=== PATIENT | male | born 1995 | race African-American/Black ===

== ENCOUNTER 2016-10-12 16:36 | Emergency (ER) | payer OTHER ==
[2016-10-12 16:52] VITALS: BP 125/64
--- NOTE | 2016-10-12 17:51 | RAD ---
Indication: LEFT fifth finger distal interphalangeal joint dislocation on October 03, 2016 with reduction the same day. Pain at the proximal and mid phalanges. Comparison: October 03, 2016 radiographs. Technique: 3 views LEFT fifth finger REPORT AND IMPRESSION: Normal articular alignment and preserved joint spaces. Negative for fracture. Minimal soft tissue swelling along the dorsal aspect.
--- NOTE | 2016-10-12 18:39 | UC ---
Hand/Wrist HPI - HPI Summary HPI Summary: PT FELL ON OUTSTRETCHED HAND ON 09/2817, DISLOCATING LITTLE FINGER ON LEFT. NO FX. SINCE INJURY, PT HAS KEPT FINGER SPLINTED, ICING IT ON THE HOUR. PT ROM IS RESTRICTED IN FLEXION AT DIP. PT IS NOT ABLE TO MAKE A FIST. PT STIL HAS PAIN WITH ROM AND TENDERNESS. PT WORKS AT [employer] AND NEEDS TO BE FULLY FUNCTIONING TO RETURN TO WORK. - History Of Current Complaint Chief Complaint: UCUpperExtremity Stated Complaint: RE CHECK FINGER INJURY-WC Time Seen by Provider: 10/12/16 17:10 Hx Obtained From: Patient Onset/Duration: Sudden Onset, Lasting Days - 9, Still Present Severity Initially: Moderate Severity Currently: Mild Character Of Pain: Dull, Stiffness Aggravating Factor(s): Flexion, Other - GRIPPING Alleviating: Rest Associated Signs And Symptoms: Positive: Swelling - MILD AT DIP[. Negative: Redness, Bruising, Fever, Weakness, Numbness/Tingling - Allergies/Home Medications Allergies/Adverse Reactions: Allergies Allergy/AdvReac Type Severity Reaction Status Date / Time No Known Allergies Allergy Verified 10/12/16 16:51 PMH/Surg Hx/FS Hx/Imm Hx Previously Healthy: Yes - Surgical History Surgical History: None - Family History Known Family History: Positive: Hypertension - father Negative: Cardiac Disease, Diabetes - Social History Alcohol Use: None Substance Use Type: Marijuana Substance Use Comment - Amount & Last Used: last used last night Smoking Status (MU): Never Smoked Tobacco Review of Systems Constitutional: Negative Skin: Negative Eyes: Negative ENT: Negative Respiratory: Negative Cardiovascular: Negative Gastrointestinal: Negative Genitourinary: Negative Motor: Negative Neurovascular: Negative Musculoskeletal: Arthralgia, Edema Neurological: Negative Psychological: Negative All Other Systems Reviewed And Are Negative: Yes Physical Exam Triage Information Reviewed: Yes Appearance: Well-Appearing, No Pain Distress, Well-Nourished Vital Signs: Initial Vital Signs Temp 97.6 F 10/12/16 16:48 Pulse 70 10/12/16 16:48 Resp 16 10/12/16 16:48 BP 125/64 10/12/16 16:48 Pulse Ox 100 10/12/16 16:48 Vital Signs Reviewed: Yes Eyes: Positive: Conjunctiva Clear. Negative: Discharge ENT: Positive: Hearing grossly normal. Negative: Muffled/hoarse voice Neck exam: Normal Neck: Positive: Supple Respiratory: Positive: Lungs clear, Normal breath sounds, No respiratory distress, No accessory muscle use Cardiovascular: Positive: RRR, No Murmur Musculoskeletal: Positive: ROM Limited @ - IN FLEXION, Edema @ - AT DIP Neurological: Positive: Alert, Muscle Tone Normal Psychological: Positive: Age Appropriate Behavior Skin Exam: Normal Hand/Wrist Course/Dx - Course Course Of Treatment: RE-IMAGED FINGER TO EVAL FOR OCCULT FX. NONE FOUND - Differential Dx/Diagnosis Differential Diagnosis/HQI/PQRI: Dislocation, Fracture, Sprain Provider Diagnoses: FINGER DISLOCATION Discharge - Discharge Plan Condition: Stable Disposition: HOME Patient Education Materials: Finger Dislocation (ED) Forms: *Work Release Referrals: No Primary Care Phys,NOPCP [Primary Care Provider] - Additional Instructions: PHYSICAL THERAPY REFERRAL: YOU NEED HAND THERAPY You have been prescribed physical therapy. Treatments may include stretching, exercise, application of heat or cold, and other modalities. After an injury, PT can reduce swelling and pain. In recovery, PT is used to restore mobility and strength. Your specific treatment goals are: __X___ Reduction of Swelling (EGS, US, ice as needed) __X___ Pain Reduction (EGS, US, ice as needed) TENS Pack Fitting and Instruction Wound Hydrotherapy Preservation of Mobility __X___ Confucianist of Mobility Strength Confucianist __X___ Work or Sports Hardening This instruction sheet also serves as your PHYSICAL THERAPY REFERRAL! Please take it with you to the therapist, so he/she will be aware of your diagnosis and treatment plan. You may see the physical therapist of your choice for these treatments, but may wish to check with your insurance to be sure the provider you select is covered. It's important to see the doctor to whom you have been referred for follow up. YOU WOULD LIKELY BENEFIT FROM OSTEOPATHIC MANIPULATION. WE RECOMMEND THAT YOU FIND AN OSTEOPATHIC PHYSICIAN IN YOUR AREA WHO DOES LYMPHATIC, MYOFACIAL AND VISCERAL WORK. ANOTHER TYPE OF PRACTITIONER WHO COULD BE OF HELP TO YOU WOULD BE AN EMPLOYMENT CONSULTANT WHO DOES [employer] FOLLOW-UP CARE: You should establish with a private physician for follow-up care. If you are unable to get a timely appointment, or if you are worsening, call us or return for re-evaluation. An additional resource available to assist in finding the appropriate physician for your health care needs is the [facility]ician Referral Center. You may contact them by calling [phone].
== END 2016-10-12 18:48 | disposition home or self-care (01) ==
LOC: UCCORT 16:36
DX: S63.257D Unspecified dislocation of left little finger, subsequent encounter (principal); W19.XXXD Unspecified fall, subsequent encounter; F12.90 Cannabis use, unspecified, uncomplicated
CPT/HCPCS: 26770; 73140; 99211; G0463

== ENCOUNTER 2016-10-19 10:57 | Emergency (ER) | payer OTHER ==
[2016-10-19 11:22] VITALS: BP 137/82
--- NOTE | 2016-10-19 12:12 | UC ---
HPI Wound/Suture Re-check - HPI Summary HPI Summary: patient dislocated his pinky and is returning for follow up to return to work. - History Of Current Complaint Chief Complaint: UCUpperExtremity Stated Complaint: RTW NOTE/CLEARANCE Time Seen by Provider: 10/19/16 12:05 Hx Obtained From: Patient Onset/Duration: Resolved Pain Intensity: 0 Pain Scale Used: 0-10 Numeric - Allergies/Home Medications Allergies/Adverse Reactions: Allergies Allergy/AdvReac Type Severity Reaction Status Date / Time No Known Allergies Allergy Verified 10/19/16 11:21 PMH/Surg Hx/FS Hx/Imm Hx Previously Healthy: Yes - Surgical History Surgical History: None - Family History Known Family History: Positive: Hypertension - father Negative: Cardiac Disease, Diabetes - Social History Alcohol Use: None Substance Use Type: Marijuana Substance Use Comment - Amount & Last Used: last used last night Smoking Status (MU): Never Smoked Tobacco Review of Systems Constitutional: Negative Skin: Negative Eyes: Negative ENT: Negative Respiratory: Negative Cardiovascular: Negative Gastrointestinal: Negative Genitourinary: Negative Motor: Negative Neurovascular: Negative Musculoskeletal: Negative Neurological: Negative Psychological: Negative All Other Systems Reviewed And Are Negative: Yes Physical Exam Triage Information Reviewed: Yes Appearance: Well-Appearing, No Pain Distress, Well-Nourished Vital Signs: Initial Vital Signs Temp 99.5 F 10/19/16 11:18 Pulse 65 10/19/16 11:18 Resp 16 10/19/16 11:18 BP 137/82 10/19/16 11:18 Pulse Ox 100 10/19/16 11:18 Eye Exam: Normal Eyes: Positive: Conjunctiva Clear ENT Exam: Normal Dental Exam: Normal Neck exam: Normal Neck: Positive: 1 Respiratory Exam: Normal Cardiovascular Exam: Normal Abdominal Exam: Normal Musculoskeletal: Positive: Strength Intact, ROM Intact, No Edema - patient is able to move his finger in full ROM, he has no pain, strength is good. Course/Dx - Course Course Of Treatment: hx obtained, exam performed, medications reviewed. noted given for return to work. - Differential Dx - Laceration/Wound Provider Diagnoses: finger dislocation follow up Discharge - Discharge Plan Condition: Stable Disposition: HOME Forms: *Work Release Referrals: No Primary Care Phys,NOPCP [Primary Care Provider] -
== END 2016-10-19 12:16 | disposition home or self-care (01) ==
LOC: UCCORT 10:57
DX: Z09 Encounter for follow-up examination after completed treatment for conditions other than malignant neoplasm (principal)
CPT/HCPCS: 99211; G0463